=== PATIENT | male | born 1995 | race Caucasian/White ===

== ENCOUNTER 2019-09-06 18:39 | Emergency (ER) | payer SELFPAY ==
[~2019-09-06] VITALS: Ht 188 cm; Wt 70.1 kg
[~2019-09-06 18:39] MED LIST: LEVO125T PO; LEVO150T PO; LIOT5TAB11 PO
[2019-09-06 18:47] VITALS: BP 133/77
--- NOTE | 2019-09-06 19:34 | NUR ---
OVEN DRIER TENDER: NEY
--- NOTE | 2019-09-06 19:49 | NUR ---
BREAK INSURANCE REPRESENTATIVE: CALLED FOR PT. PT NOT IN LOBBY.
--- NOTE | 2019-09-06 20:07 | NUR ---
BREAK OBSTETRICS GYNECOLOGY MD: CALLED FOR PT. PT NOT IN LOBBY AT THIS TIME.
== END 2019-09-06 20:08 | disposition left against medical advice (07) ==
LOC: ED 20:00
DX: R07.9 Chest pain, unspecified (principal); R06.02 Shortness of breath; Z53.21 Procedure and treatment not carried out due to patient leaving prior to being seen by health care provider
CPT/HCPCS: 93005